=== PATIENT | male | born 1985 | race Hispanic/Latino ===

== ENCOUNTER 2019-05-05 10:23 | Emergency (ER) | payer SELFPAY ==
[2019-05-05 11:19] LABS: RAPID GROUP A STREP NEGATIVE (NEGATIVE)
== END 2019-05-05 12:14 | disposition home or self-care (01) ==
LOC: EDH 10:23
DX: J06.9 Acute upper respiratory infection, unspecified (principal); I10 Essential (primary) hypertension; Z87.891 Personal history of nicotine dependence
CPT/HCPCS: 87804; 87880